=== PATIENT | male | born 1950 | race African-American/Black ===

== ENCOUNTER 2020-04-07 12:33 | Inpatient (IN) | payer OTHER ==
[2020-04-07 14:16] VITALS: BMI 21.2
[2020-04-07] MEDS ORDERED: NICOTINE POLACRILEX 2 MG GUM BUC PRN (21:28)
[2020-04-07] MEDS ORDERED: MAGNESIUM CITRATE 300 ML BOTTLE PO PRN (21:28)
[2020-04-07] MEDS ORDERED: MENTHOL/PHENOL 1 EACH UD MM PRN (21:28)
[2020-04-07] MEDS ORDERED: ACETAMINOPHEN 325 MG TABLET (FP) PO PRN ×2 (21:28)
[2020-04-07] MEDS ORDERED: METHOCARBAMOL 500 MG TABLET PO PRN (21:28)
[2020-04-07] MEDS ORDERED: MAGNESIUM HYDROX 2400MG/30ML ORAL SUSPENSION 30 ML CUP PO PRN (21:28)
[2020-04-07] MEDS ORDERED: MAG HYDROX/AL HYDROX/SIMETH 30 ML UNIT-DOSE CUP PO PRN (21:28)
[2020-04-07] MEDS ORDERED: ONDANSETRON *ODT* 4 MG TABLET SL PRN (21:28)
[2020-04-07] MEDS ORDERED: ALBUTEROL SO4 HFA INHALER IH PRN (21:33)
[2020-04-07] MEDS ORDERED: chlordiazePOXIDE HCL 25 MG CAPSULE PO PRN (21:36)
[2020-04-07] MEDS ORDERED: cloNIDine HCL 0.1 MG TABLET PO PRN (21:37)
[2020-04-07] MEDS ORDERED: chlordiazePOXIDE HCL 10 MG CAPSULE PO PRN (21:42)
[2020-04-07] MEDS ORDERED: METHADONE HCL 10 MG TABLET (FOR DETOX USE ONLY) PO ONE (22:15)
[2020-04-07] MEDS: THIAMINE HCL 100 MG TABLET (FP) PO SCH (22:47)
[2020-04-07] MEDS: chlordiazePOXIDE HCL 25 MG CAPSULE PO SCH (22:47)
[2020-04-07] MEDS: guaiFENesin 200 MG/10 ML 10 ML UNIT-DOSE CUPS PO SCH (22:49)
[2020-04-07] MEDS: MELATONIN 5 MG TABLETS PO SCH (22:50)
[2020-04-08] MEDS: guaiFENesin 200 MG/10 ML 10 ML UNIT-DOSE CUPS PO SCH ×4 (05:31→22:43)
[2020-04-08] MEDS: chlordiazePOXIDE HCL 25 MG CAPSULE PO SCH ×4 (06:31→22:43)
[2020-04-08] MEDS ORDERED: METHADONE HCL 10 MG TABLET (FOR DETOX USE ONLY) PO ONE (10:00)
[2020-04-08] MEDS: LISINOPRIL 10 MG TABLET PO SCH (10:40)
[2020-04-08] MEDS: NICOTINE 7 MG/24 HOURS TOPICAL PATCH TD SCH (10:41)
[2020-04-08] MEDS: PRENATAL VITAMINS W/ FOLIC ACID TABLET (FP) PO SCH (10:41)
[2020-04-08] MEDS: MELATONIN 5 MG TABLETS PO SCH (22:43)
[2020-04-08] MEDS: THIAMINE HCL 100 MG TABLET (FP) PO SCH (22:43)
[2020-04-09] MEDS: guaiFENesin 200 MG/10 ML 10 ML UNIT-DOSE CUPS PO SCH ×3 (05:55→16:50)
[2020-04-09] MEDS: chlordiazePOXIDE HCL 25 MG CAPSULE PO SCH ×4 (05:56→22:04)
[2020-04-09] MEDS ORDERED: METHADONE HCL 5 MG TABLET (FOR DETOX USE ONLY) PO ONE (10:00)
[2020-04-09] MEDS: LISINOPRIL 10 MG TABLET PO SCH (10:37)
[2020-04-09] MEDS: NICOTINE 7 MG/24 HOURS TOPICAL PATCH TD SCH (10:40)
[2020-04-09] MEDS: PRENATAL VITAMINS W/ FOLIC ACID TABLET (FP) PO SCH (10:46)
[2020-04-09] MEDS: THIAMINE HCL 100 MG TABLET (FP) PO SCH (22:04)
[2020-04-09] MEDS: MELATONIN 5 MG TABLETS PO SCH (22:05)
[2020-04-10] MEDS ORDERED: chlordiazePOXIDE HCL 10 MG CAPSULE PO PRN
[2020-04-10] MEDS: chlordiazePOXIDE HCL 10 MG CAPSULE PO SCH ×3 (07:03→18:16)
[2020-04-10] MEDS ORDERED: METHADONE HCL 5 MG TABLET (FOR DETOX USE ONLY) ONE (08:29)
[2020-04-10] MEDS ORDERED: METHADONE HCL 10 MG TABLET (FOR DETOX USE ONLY) ONE (08:30)
[2020-04-10] MEDS ORDERED: METHADONE (DETOX) 10 MG, METHADONE (DETOX) 5 MG PO ONE (10:00)
[2020-04-10] MEDS: PRENATAL VITAMINS W/ FOLIC ACID TABLET (FP) PO SCH (10:39)
[2020-04-10] MEDS: NICOTINE 7 MG/24 HOURS TOPICAL PATCH TD SCH (10:46)
[2020-04-10] MEDS: LISINOPRIL 10 MG TABLET PO SCH (13:32)
[2020-04-10] MEDS: THIAMINE HCL 100 MG TABLET (FP) PO SCH (23:31)
[2020-04-10] MEDS: MELATONIN 5 MG TABLETS PO SCH (23:31)
[2020-04-11] MEDS ORDERED: chlordiazePOXIDE HCL 10 MG CAPSULE PO SCH (05:00)
[2020-04-11] MEDS: NICOTINE 7 MG/24 HOURS TOPICAL PATCH TD SCH (09:34)
[2020-04-11] MEDS: LISINOPRIL 10 MG TABLET PO SCH (09:34)
[2020-04-11] MEDS: PRENATAL VITAMINS W/ FOLIC ACID TABLET (FP) PO SCH (09:34)
[2020-04-11] MEDS ORDERED: METHADONE HCL 10 MG TABLET (FOR DETOX USE ONLY) PO ONE (10:00)
[2020-04-11 14:22] LABS: INR 1.32 (0.83-1.09); PROTHROMBIN TIME (PATIENT) 15.9 SEC (9.7-13.0)
[2020-04-11] MEDS ORDERED: MASKS NR ONE (17:31)
[2020-04-11] MEDS: MELATONIN 5 MG TABLETS PO SCH (22:39)
[2020-04-11] MEDS: THIAMINE HCL 100 MG TABLET (FP) PO SCH (22:39)
[2020-04-12] MEDS ORDERED: chlordiazePOXIDE HCL 10 MG CAPSULE PO ONE (05:00)
[2020-04-12] MEDS ORDERED: METHADONE HCL 5 MG TABLET (FOR DETOX USE ONLY) PO ONE (06:00)
[2020-04-12 09:50] VITALS: BP 149/91; PULSE 84; TEMP 97.3
[2020-04-12] MEDS: PRENATAL VITAMINS W/ FOLIC ACID TABLET (FP) PO SCH (10:28)
[2020-04-12] MEDS: NICOTINE 7 MG/24 HOURS TOPICAL PATCH TD SCH (10:28)
[2020-04-12] MEDS: LISINOPRIL 10 MG TABLET PO SCH (10:28)
== END 2020-04-12 11:30 | disposition home or self-care (01) | DRG 897 ==
LOC: YASAS 12:33 → Y6N 20:59
PROVIDERS: ADMIT Allergy & Immunology; ATTEND Allergy & Immunology
PROC: HZ2ZZZZ Detoxification Services for Substance Abuse Treatment (ICD-10-PCS; principal; 2020-04-07)
DX: F10.230 Alcohol dependence with withdrawal, uncomplicated (principal); F14.20 Cocaine dependence, uncomplicated; I69.854 Hemiplegia and hemiparesis following other cerebrovascular disease affecting left non-dominant side; F11.23 Opioid dependence with withdrawal; F17.210 Nicotine dependence, cigarettes, uncomplicated; F32.9 Major depressive disorder, single episode, unspecified; I10 Essential (primary) hypertension; I48.91 Unspecified atrial fibrillation; J43.9 Emphysema, unspecified; J45.909 Unspecified asthma, uncomplicated; K21.9 Gastro-esophageal reflux disease without esophagitis; R00.1 Bradycardia, unspecified; R76.11 Nonspecific reaction to tuberculin skin test without active tuberculosis; R26.89 Other abnormalities of gait and mobility; R63.4 Abnormal weight loss; Z98.61 Coronary angioplasty status; Z68.21 Body mass index [BMI] 21.0-21.9, adult; Z99.89 Dependence on other enabling machines and devices; Z86.19 Personal history of other infectious and parasitic diseases
CPT/HCPCS: 36415; 71046-TC-FY; 85610; 86780; C9803; U0003

== ENCOUNTER 2020-04-07 13:47 | Emergency (ER) | payer OTHER ==
[2020-04-07] MEDS ORDERED: ACETAMINOPHEN 325 MG TABLET (FP) PO ONE (15:27)
[2020-04-07] MEDS ORDERED: chlordiazePOXIDE HCL 25 MG CAPSULE PO ONE (15:27)
[2020-04-07] MEDS ORDERED: chlordiazePOXIDE HCL 25 MG CAPSULE ONE (15:44)
[2020-04-07] MEDS ORDERED: ACETAMINOPHEN 325 MG TABLET (FP) ONE (15:44)
[2020-04-07 16:18] LABS: BASO % 2.5 % (0-2.0); EOS % 5.5 % (0-4.5); HEMATOCRIT 42.2 % (35.4-49); HEMOGLOBIN 13.7 GM/dL (11.7-16.9); LYMPH % 35.1 % (8-40); MCH 29.8 pg (25.7-33.7); MCHC 32.5 g/dl (32.0-35.9); MEAN CELL VOLUME 91.6 fl (80-96); MEAN PLT VOLUME 8.1 fl (7.5-11.1); MONO % 15.1 % (3.8-10.2); NEUT % 41.8 % (42.8-82.8); PLATELET COUNT 274 K/MM3 (134-434); RBC 4.61 M/mm3 (4.00-5.60); RDW 16.4 % (11.9-15.9); WHITE BLOOD COUNT 3.6 K/mm3 (4.0-10.0)
[2020-04-07 16:45] LABS: POTASSIUM 3.5 mmol/L (3.5-5.1)
[2020-04-07 16:46] LABS: CALCIUM 8.7 mg/dL (8.5-10.1)
[2020-04-07 16:48] LABS: ALBUMIN 3.4 g/dl (3.4-5.0); BLOOD UREA NITROGEN 12.7 mg/dL (7-18)
[2020-04-07 16:50] LABS: CREATININE 1.2 mg/dL (0.55-1.3)
[2020-04-07 16:53] LABS: TOT PROT 6.8 g/dl (6.4-8.2)
[2020-04-07 17:52] LABS: PROTHROMBIN TIME (PATIENT) 53.8 SEC (9.7-13.0)
[2020-04-07 17:55] LABS: ACTIVATED PTT 48.8 SECONDS (25.2-36.5)
[2020-04-07 18:16] LABS: INR 4.65 (0.83-1.09)
[2020-04-07 18:53] VITALS: BP 118/83; PULSE 69
== END 2020-04-07 18:59 | disposition home or self-care (01) ==
LOC: JER 13:47
DX: R00.1 Bradycardia, unspecified (principal); F10.239 Alcohol dependence with withdrawal, unspecified
CPT/HCPCS: 36415; 80053; 85025; 85610; 85730; 93005; 93010; 99283-25

== ENCOUNTER 2021-10-29 16:12 | Inpatient (IN) | payer OTHER ==
[2021-10-29] MEDS ORDERED: IBUPROFEN 600 MG TABLET (FP) PO PRN (17:32)
[2021-10-29] MEDS ORDERED: MAGNESIUM CITRATE 300 ML BOTTLE PO PRN (17:32)
[2021-10-29] MEDS ORDERED: MAG HYDROX/AL HYDROX/SIMETH 30 ML UNIT-DOSE CUP PO PRN (17:32)
[2021-10-29] MEDS ORDERED: METHOCARBAMOL 500 MG TABLET PO PRN (17:32)
[2021-10-29] MEDS ORDERED: NICOTINE POLACRILEX 2 MG GUM BUC PRN (17:32)
[2021-10-29] MEDS ORDERED: DICYCLOMINE HCL 10 MG CAPSULE PO PRN (17:32)
[2021-10-29] MEDS ORDERED: ACETAMINOPHEN 325 MG TABLET (FP) PO PRN ×2 (17:32)
[2021-10-29] MEDS ORDERED: IBUPROFEN 400 MG TABLET (FP) PO PRN (17:32)
[2021-10-29] MEDS ORDERED: LOPERAMIDE HCL 2 MG CAPSULE PO PRN (17:32)
[2021-10-29] MEDS ORDERED: MAGNESIUM HYDROX 2400MG/30ML ORAL SUSPENSION 30 ML CUP PO PRN (17:32)
[2021-10-29] MEDS ORDERED: ONDANSETRON *ODT* 4 MG TABLET SL PRN (17:32)
[2021-10-29] MEDS ORDERED: BENZOCAINE/MENTHOL (CHLORASEPTIC ) LOZENGE MM PRN (17:32)
[2021-10-29] MEDS ORDERED: BISMUTH SUBSALICYLATE 524 MG/30 ML PO PRN (17:32)
[2021-10-29] MEDS ORDERED: diazePAM 5 MG TABLET PO PRN (17:35)
[2021-10-29 17:56] VITALS: BMI 18.6
[2021-10-29] MEDS ORDERED: ALBUTEROL SO4 HFA INHALER IH PRN (19:53)
[2021-10-29] MEDS: levETIRAcetam 500 MG TABLET (FP) PO SCH (22:35)
[2021-10-29] MEDS: ATORVASTATIN CA 40 MG TABLET (FP) PO SCH (22:35)
[2021-10-29] MEDS: diazePAM 5 MG TABLET PO SCH (22:35)
[2021-10-29] MEDS: THIAMINE HCL 100 MG TABLET (FP) PO SCH (22:35)
[2021-10-30] MEDS: diazePAM 5 MG TABLET PO SCH ×4 (06:08→22:41)
[2021-10-30 09:51] LABS: HEMATOCRIT 39.7 % (35.4-49); HEMOGLOBIN 13.3 GM/dL (11.7-16.9); MCH 30.9 pg (25.7-33.7); MCHC 33.6 g/dl (32.0-35.9); MEAN CELL VOLUME 91.9 fl (80-96); MEAN PLT VOLUME 7.5 fl (7.5-11.1); PLATELET COUNT 249 10^3/uL (134-434); RBC 4.32 M/mm3 (4.00-5.60); RDW 15.6 % (11.9-15.9); WHITE BLOOD COUNT 4.1 K/mm3 (4.0-10.0)
[2021-10-30] MEDS ORDERED: FUROSEMIDE 40 MG TABLET (FP) PO SCH (10:00)
[2021-10-30 10:07] LABS: CALCIUM 8.1 mg/dL (8.5-10.1)
[2021-10-30 10:08] LABS: BLOOD UREA NITROGEN 16.8 mg/dL (7-18)
[2021-10-30 10:11] LABS: CREATININE 1.3 mg/dL (0.55-1.3)
[2021-10-30 10:13] LABS: BILIRUBIN,TOTAL 0.6 mg/dL (0.2-1); TOT PROT 6.1 g/dl (6.4-8.2)
[2021-10-30] MEDS ORDERED: POTASSIUM CHLORIDE ORAL LIQUID 20 MEQ/15 ML PO ONE (10:51)
[2021-10-30] MEDS: PRENATAL VITAMINS W/ FOLIC ACID TABLET (FP) PO SCH (11:19)
[2021-10-30] MEDS: levETIRAcetam 500 MG TABLET (FP) PO SCH ×2 (11:20→22:41)
[2021-10-30] MEDS: RIVAROXABAN 20 MG TABLET PO SCH (11:20)
[2021-10-30] MEDS: LISINOPRIL 10 MG TABLET PO SCH (11:21)
[2021-10-30] MEDS: hydrOXYzine PAMOATE 25 MG CAPSULE (FP) PO PRN (18:22)
[2021-10-30] MEDS: ATORVASTATIN CA 40 MG TABLET (FP) PO SCH (22:41)
[2021-10-30] MEDS: THIAMINE HCL 100 MG TABLET (FP) PO SCH (22:41)
[2021-10-31] MEDS: diazePAM 5 MG TABLET PO SCH ×3 (06:38→21:35)
[2021-10-31] MEDS: hydrOXYzine PAMOATE 25 MG CAPSULE (FP) PO PRN ×2 (10:40→13:09)
[2021-10-31] MEDS: levETIRAcetam 500 MG TABLET (FP) PO SCH ×2 (10:40→21:34)
[2021-10-31] MEDS: LISINOPRIL 10 MG TABLET PO SCH (10:40)
[2021-10-31] MEDS: PRENATAL VITAMINS W/ FOLIC ACID TABLET (FP) PO SCH (10:40)
[2021-10-31] MEDS: FUROSEMIDE 40 MG TABLET (FP) PO SCH (11:09)
[2021-10-31] MEDS: RIVAROXABAN 20 MG TABLET PO SCH (12:02)
[2021-10-31] MEDS: THIAMINE HCL 100 MG TABLET (FP) PO SCH (21:35)
[2021-10-31] MEDS: MELATONIN 5 MG TABLETS PO PRN (21:35)
[2021-10-31] MEDS: ATORVASTATIN CA 40 MG TABLET (FP) PO SCH (21:35)
[2021-11-01] MEDS: diazePAM 5 MG TABLET PO SCH ×2 (06:04→18:13)
[2021-11-01] MEDS: LISINOPRIL 10 MG TABLET PO SCH (10:44)
[2021-11-01] MEDS: PRENATAL VITAMINS W/ FOLIC ACID TABLET (FP) PO SCH (10:44)
[2021-11-01] MEDS: levETIRAcetam 500 MG TABLET (FP) PO SCH ×2 (10:44→23:04)
[2021-11-01] MEDS: FUROSEMIDE 40 MG TABLET (FP) PO SCH (10:45)
[2021-11-01] MEDS: RIVAROXABAN 20 MG TABLET PO SCH (10:45)
[2021-11-01] MEDS: MELATONIN 5 MG TABLETS PO PRN (23:04)
[2021-11-01] MEDS: ATORVASTATIN CA 40 MG TABLET (FP) PO SCH (23:04)
[2021-11-01] MEDS: THIAMINE HCL 100 MG TABLET (FP) PO SCH (23:05)
[2021-11-02] MEDS ORDERED: diazePAM 5 MG TABLET PO ONE (06:00)
[2021-11-02] MEDS: RIVAROXABAN 20 MG TABLET PO SCH (10:43)
[2021-11-02] MEDS: levETIRAcetam 500 MG TABLET (FP) PO SCH (10:43)
[2021-11-02] MEDS: PRENATAL VITAMINS W/ FOLIC ACID TABLET (FP) PO SCH (10:43)
[2021-11-02] MEDS: FUROSEMIDE 40 MG TABLET (FP) PO SCH (10:43)
[2021-11-02] MEDS: LISINOPRIL 10 MG TABLET PO SCH (10:43)
[2021-11-02 13:56] VITALS: BP 105/60; PULSE 63; TEMP 97.3
== END 2021-11-02 17:44 | disposition other institution (70) | DRG 897 ==
LOC: YASAS 16:12 → Y6N 19:40
PROVIDERS: ADMIT Allergy & Immunology; ATTEND Surgery
PROC: HZ2ZZZZ Detoxification Services for Substance Abuse Treatment (ICD-10-PCS; principal; 2021-10-29)
DX: F10.230 Alcohol dependence with withdrawal, uncomplicated (principal); F11.20 Opioid dependence, uncomplicated; F14.20 Cocaine dependence, uncomplicated; I69.854 Hemiplegia and hemiparesis following other cerebrovascular disease affecting left non-dominant side; F17.210 Nicotine dependence, cigarettes, uncomplicated; F18.24 Inhalant dependence with inhalant-induced mood disorder; I48.91 Unspecified atrial fibrillation; I10 Essential (primary) hypertension; J43.9 Emphysema, unspecified; K21.9 Gastro-esophageal reflux disease without esophagitis; R26.89 Other abnormalities of gait and mobility; Z79.01 Long term (current) use of anticoagulants; Z86.11 Personal history of tuberculosis
CPT/HCPCS: 36415; 71045-TC-FY; 80053; 84132; 85027; 86780; C9803-CS; U0003; U0005

== ENCOUNTER 2021-11-02 17:55 | Inpatient (IN) | payer OTHER ==
[2021-11-02] MEDS ORDERED: ACETAMINOPHEN 325 MG TABLET (FP) PO PRN (19:59)
[2021-11-02] MEDS ORDERED: hydrOXYzine PAMOATE 25 MG CAPSULE (FP) PO PRN (19:59)
[2021-11-02] MEDS ORDERED: MAGNESIUM CITRATE 300 ML BOTTLE PO PRN (19:59)
[2021-11-02] MEDS ORDERED: MAGNESIUM HYDROX 2400MG/30ML ORAL SUSPENSION 30 ML CUP PO PRN (19:59)
[2021-11-02] MEDS ORDERED: guaiFENesin 200 MG/10 ML 10 ML UNIT-DOSE CUPS PO PRN (19:59)
[2021-11-02] MEDS ORDERED: P-EPHED 60MG/TRIPROLIDI 2.5MG TABLET PO PRN (19:59)
[2021-11-02] MEDS ORDERED: BENZOCAINE/MENTHOL (CHLORASEPTIC ) LOZENGE MM PRN (19:59)
[2021-11-02] MEDS ORDERED: IBUPROFEN 400 MG TABLET (FP) PO PRN (19:59)
[2021-11-02] MEDS ORDERED: NICOTINE 10 MG CARTRIDGE (INHALER) IH PRN (19:59)
[2021-11-02] MEDS ORDERED: MAG HYDROX/AL HYDROX/SIMETH 30 ML UNIT-DOSE CUP PO PRN (19:59)
[2021-11-02] MEDS ORDERED: LOPERAMIDE HCL 2 MG CAPSULE PO PRN (19:59)
[2021-11-02] MEDS ORDERED: ALBUTEROL SO4 HFA INHALER IH PRN (20:00)
[2021-11-02] MEDS: levETIRAcetam 500 MG TABLET (FP) PO SCH (22:42)
[2021-11-02] MEDS: ATORVASTATIN CA 40 MG TABLET (FP) PO SCH (22:42)
[2021-11-02] MEDS: THIAMINE HCL 100 MG TABLET (FP) PO SCH (22:43)
[2021-11-02] MEDS: MELATONIN 5 MG TABLETS PO PRN (22:43)
[2021-11-03] MEDS ORDERED: PATIENT'S OWN MEDICATION (NON-FORMULARY) (Multivitamin [Multiple Vitamins] 1 EACH Tablet) PO SCH (10:00)
[2021-11-03] MEDS: levETIRAcetam 500 MG TABLET (FP) PO SCH ×2 (11:31→22:13)
[2021-11-03] MEDS: FUROSEMIDE 40 MG TABLET (FP) PO SCH (11:31)
[2021-11-03] MEDS: RIVAROXABAN 20 MG TABLET PO SCH (11:31)
[2021-11-03] MEDS: LISINOPRIL 10 MG TABLET PO SCH (11:31)
[2021-11-03] MEDS: PRENATAL VITAMINS W/ FOLIC ACID TABLET (FP) PO SCH (11:32)
[2021-11-03] MEDS: THIAMINE HCL 100 MG TABLET (FP) PO SCH (22:13)
[2021-11-03] MEDS: ATORVASTATIN CA 40 MG TABLET (FP) PO SCH (22:13)
[2021-11-03] MEDS: MELATONIN 5 MG TABLETS PO PRN (22:14)
[2021-11-04] MEDS: levETIRAcetam 500 MG TABLET (FP) PO SCH ×2 (09:59→22:05)
[2021-11-04] MEDS: PRENATAL VITAMINS W/ FOLIC ACID TABLET (FP) PO SCH (09:59)
[2021-11-04] MEDS: FUROSEMIDE 40 MG TABLET (FP) PO SCH (09:59)
[2021-11-04] MEDS: RIVAROXABAN 20 MG TABLET PO SCH (09:59)
[2021-11-04] MEDS: LISINOPRIL 10 MG TABLET PO SCH (09:59)
[2021-11-04] MEDS: THIAMINE HCL 100 MG TABLET (FP) PO SCH (22:05)
[2021-11-04] MEDS: ATORVASTATIN CA 40 MG TABLET (FP) PO SCH (22:05)
[2021-11-05] MEDS: FUROSEMIDE 40 MG TABLET (FP) PO SCH (11:18)
[2021-11-05] MEDS: levETIRAcetam 500 MG TABLET (FP) PO SCH ×2 (11:18→21:30)
[2021-11-05] MEDS: PRENATAL VITAMINS W/ FOLIC ACID TABLET (FP) PO SCH (11:18)
[2021-11-05] MEDS: LISINOPRIL 10 MG TABLET PO SCH (11:18)
[2021-11-05] MEDS: RIVAROXABAN 20 MG TABLET PO SCH (11:19)
[2021-11-05] MEDS: THIAMINE HCL 100 MG TABLET (FP) PO SCH (21:30)
[2021-11-05] MEDS: ATORVASTATIN CA 40 MG TABLET (FP) PO SCH (21:30)
[2021-11-05] MEDS: MELATONIN 5 MG TABLETS PO PRN (21:30)
[2021-11-06] MEDS: levETIRAcetam 500 MG TABLET (FP) PO SCH ×2 (11:56→21:46)
[2021-11-06] MEDS: PRENATAL VITAMINS W/ FOLIC ACID TABLET (FP) PO SCH (11:56)
[2021-11-06] MEDS: FUROSEMIDE 40 MG TABLET (FP) PO SCH (11:56)
[2021-11-06] MEDS: LISINOPRIL 10 MG TABLET PO SCH (11:56)
[2021-11-06] MEDS: RIVAROXABAN 20 MG TABLET PO SCH (11:57)
[2021-11-06] MEDS: ATORVASTATIN CA 40 MG TABLET (FP) PO SCH (21:46)
[2021-11-06] MEDS: MELATONIN 5 MG TABLETS PO PRN (21:46)
[2021-11-06] MEDS: THIAMINE HCL 100 MG TABLET (FP) PO SCH (21:46)
[2021-11-07] MEDS: FUROSEMIDE 40 MG TABLET (FP) PO SCH (11:19)
[2021-11-07] MEDS: PRENATAL VITAMINS W/ FOLIC ACID TABLET (FP) PO SCH (11:19)
[2021-11-07] MEDS: levETIRAcetam 500 MG TABLET (FP) PO SCH ×2 (11:19→21:26)
[2021-11-07] MEDS: RIVAROXABAN 20 MG TABLET PO SCH (11:19)
[2021-11-07] MEDS: LISINOPRIL 10 MG TABLET PO SCH (11:19)
[2021-11-07] MEDS: ATORVASTATIN CA 40 MG TABLET (FP) PO SCH (21:26)
[2021-11-07] MEDS: THIAMINE HCL 100 MG TABLET (FP) PO SCH (21:26)
[2021-11-07] MEDS: MELATONIN 5 MG TABLETS PO PRN (21:26)
[2021-11-08] MEDS: levETIRAcetam 500 MG TABLET (FP) PO SCH ×2 (10:44→22:03)
[2021-11-08] MEDS: RIVAROXABAN 20 MG TABLET PO SCH (10:44)
[2021-11-08] MEDS: PRENATAL VITAMINS W/ FOLIC ACID TABLET (FP) PO SCH (10:44)
[2021-11-08] MEDS: FUROSEMIDE 40 MG TABLET (FP) PO SCH (10:44)
[2021-11-08] MEDS: LISINOPRIL 10 MG TABLET PO SCH (10:44)
[2021-11-08] MEDS: ATORVASTATIN CA 40 MG TABLET (FP) PO SCH (22:03)
[2021-11-08] MEDS: MELATONIN 5 MG TABLETS PO PRN (22:03)
[2021-11-08] MEDS: THIAMINE HCL 100 MG TABLET (FP) PO SCH (22:04)
[2021-11-09] MEDS: RIVAROXABAN 20 MG TABLET PO SCH (11:00)
[2021-11-09] MEDS: levETIRAcetam 500 MG TABLET (FP) PO SCH ×2 (11:00→21:33)
[2021-11-09] MEDS: FUROSEMIDE 40 MG TABLET (FP) PO SCH (11:00)
[2021-11-09] MEDS: PRENATAL VITAMINS W/ FOLIC ACID TABLET (FP) PO SCH (11:00)
[2021-11-09] MEDS: LISINOPRIL 10 MG TABLET PO SCH (11:00)
[2021-11-09] MEDS: ATORVASTATIN CA 40 MG TABLET (FP) PO SCH (21:33)
[2021-11-09] MEDS: ALBUTEROL SO4 HFA INHALER IH SCH (21:37)
[2021-11-09] MEDS: THIAMINE HCL 100 MG TABLET (FP) PO SCH (21:38)
[2021-11-10] MEDS: levETIRAcetam 500 MG TABLET (FP) PO SCH ×2 (10:42→21:46)
[2021-11-10] MEDS: PRENATAL VITAMINS W/ FOLIC ACID TABLET (FP) PO SCH (10:42)
[2021-11-10] MEDS: LISINOPRIL 10 MG TABLET PO SCH (10:42)
[2021-11-10] MEDS: FUROSEMIDE 40 MG TABLET (FP) PO SCH (10:42)
[2021-11-10] MEDS: ALBUTEROL SO4 HFA INHALER IH SCH ×2 (10:47→21:50)
[2021-11-10] MEDS: RIVAROXABAN 20 MG TABLET PO SCH (18:49)
[2021-11-10] MEDS: THIAMINE HCL 100 MG TABLET (FP) PO SCH (21:46)
[2021-11-10] MEDS: ATORVASTATIN CA 40 MG TABLET (FP) PO SCH (21:46)
[2021-11-10] MEDS: MELATONIN 5 MG TABLETS PO PRN (21:46)
[2021-11-11] MEDS: levETIRAcetam 500 MG TABLET (FP) PO SCH ×2 (10:23→21:38)
[2021-11-11] MEDS: FUROSEMIDE 40 MG TABLET (FP) PO SCH (10:23)
[2021-11-11] MEDS: ALBUTEROL SO4 HFA INHALER IH SCH ×2 (10:23→21:39)
[2021-11-11] MEDS: LISINOPRIL 10 MG TABLET PO SCH (10:23)
[2021-11-11] MEDS: PRENATAL VITAMINS W/ FOLIC ACID TABLET (FP) PO SCH (10:23)
[2021-11-11] MEDS: RIVAROXABAN 20 MG TABLET PO SCH (17:06)
[2021-11-11] MEDS: THIAMINE HCL 100 MG TABLET (FP) PO SCH (21:38)
[2021-11-11] MEDS: MELATONIN 5 MG TABLETS PO PRN (21:38)
[2021-11-11] MEDS: ATORVASTATIN CA 40 MG TABLET (FP) PO SCH (21:38)
[2021-11-12] MEDS: ALBUTEROL SO4 HFA INHALER IH PRN (06:46)
[2021-11-12] MEDS: FUROSEMIDE 40 MG TABLET (FP) PO SCH (11:03)
[2021-11-12] MEDS: PRENATAL VITAMINS W/ FOLIC ACID TABLET (FP) PO SCH (11:03)
[2021-11-12] MEDS: LISINOPRIL 10 MG TABLET PO SCH (11:04)
[2021-11-12] MEDS: ALBUTEROL SO4 HFA INHALER IH SCH ×2 (11:04→22:40)
[2021-11-12] MEDS: levETIRAcetam 500 MG TABLET (FP) PO SCH ×2 (11:04→22:38)
[2021-11-12] MEDS: RIVAROXABAN 20 MG TABLET PO SCH (17:14)
[2021-11-12] MEDS: THIAMINE HCL 100 MG TABLET (FP) PO SCH (22:38)
[2021-11-12] MEDS: MELATONIN 5 MG TABLETS PO PRN (22:38)
[2021-11-12] MEDS: ATORVASTATIN CA 40 MG TABLET (FP) PO SCH (22:38)
[2021-11-13] MEDS: levETIRAcetam 500 MG TABLET (FP) PO SCH ×2 (11:48→22:07)
[2021-11-13] MEDS: PRENATAL VITAMINS W/ FOLIC ACID TABLET (FP) PO SCH (11:48)
[2021-11-13] MEDS: FUROSEMIDE 40 MG TABLET (FP) PO SCH (11:48)
[2021-11-13] MEDS: LISINOPRIL 10 MG TABLET PO SCH (11:49)
[2021-11-13] MEDS: ALBUTEROL SO4 HFA INHALER IH SCH ×2 (11:53→22:07)
[2021-11-13] MEDS: RIVAROXABAN 20 MG TABLET PO SCH (17:13)
[2021-11-13] MEDS: THIAMINE HCL 100 MG TABLET (FP) PO SCH (22:07)
[2021-11-13] MEDS: ATORVASTATIN CA 40 MG TABLET (FP) PO SCH (22:07)
[2021-11-13] MEDS: MELATONIN 5 MG TABLETS PO PRN (22:07)
[2021-11-14] MEDS: levETIRAcetam 500 MG TABLET (FP) PO SCH ×2 (10:46→21:18)
[2021-11-14] MEDS: FUROSEMIDE 40 MG TABLET (FP) PO SCH (10:46)
[2021-11-14] MEDS: PRENATAL VITAMINS W/ FOLIC ACID TABLET (FP) PO SCH (10:46)
[2021-11-14] MEDS: LISINOPRIL 10 MG TABLET PO SCH (10:46)
[2021-11-14] MEDS: ALBUTEROL SO4 HFA INHALER IH SCH ×2 (10:47→21:19)
[2021-11-14] MEDS: RIVAROXABAN 20 MG TABLET PO SCH (17:14)
[2021-11-14] MEDS: MELATONIN 5 MG TABLETS PO PRN (21:18)
[2021-11-14] MEDS: THIAMINE HCL 100 MG TABLET (FP) PO SCH (21:18)
[2021-11-14] MEDS: ATORVASTATIN CA 40 MG TABLET (FP) PO SCH (21:18)
[2021-11-15] MEDS: FUROSEMIDE 40 MG TABLET (FP) PO SCH (10:17)
[2021-11-15] MEDS: LISINOPRIL 10 MG TABLET PO SCH (10:17)
[2021-11-15] MEDS: PRENATAL VITAMINS W/ FOLIC ACID TABLET (FP) PO SCH (10:17)
[2021-11-15] MEDS: levETIRAcetam 500 MG TABLET (FP) PO SCH ×2 (10:17→21:28)
[2021-11-15] MEDS: ALBUTEROL SO4 HFA INHALER IH SCH ×2 (10:57→21:29)
[2021-11-15] MEDS: RIVAROXABAN 20 MG TABLET PO SCH (17:29)
[2021-11-15] MEDS: ATORVASTATIN CA 40 MG TABLET (FP) PO SCH (21:28)
[2021-11-15] MEDS: THIAMINE HCL 100 MG TABLET (FP) PO SCH (21:28)
[2021-11-15] MEDS: MELATONIN 5 MG TABLETS PO PRN (21:28)
[2021-11-16] MEDS: PRENATAL VITAMINS W/ FOLIC ACID TABLET (FP) PO SCH (10:51)
[2021-11-16] MEDS: ALBUTEROL SO4 HFA INHALER IH SCH ×2 (10:51→21:28)
[2021-11-16] MEDS: FUROSEMIDE 40 MG TABLET (FP) PO SCH (10:51)
[2021-11-16] MEDS: LISINOPRIL 10 MG TABLET PO SCH (10:51)
[2021-11-16] MEDS: levETIRAcetam 500 MG TABLET (FP) PO SCH ×2 (10:51→21:01)
[2021-11-16] MEDS: NALTREXONE HCL 50 MG TABLET PO SCH (15:36)
[2021-11-16] MEDS: RIVAROXABAN 20 MG TABLET PO SCH (17:03)
[2021-11-16] MEDS: THIAMINE HCL 100 MG TABLET (FP) PO SCH (21:01)
[2021-11-16] MEDS: ATORVASTATIN CA 40 MG TABLET (FP) PO SCH (21:01)
[2021-11-17] MEDS: ALBUTEROL SO4 HFA INHALER IH PRN (06:08)
[2021-11-17] MEDS: FUROSEMIDE 40 MG TABLET (FP) PO SCH (10:40)
[2021-11-17] MEDS: LISINOPRIL 10 MG TABLET PO SCH (10:40)
[2021-11-17] MEDS: levETIRAcetam 500 MG TABLET (FP) PO SCH ×2 (10:40→21:50)
[2021-11-17] MEDS: ALBUTEROL SO4 HFA INHALER IH SCH ×2 (10:40→21:50)
[2021-11-17] MEDS: PRENATAL VITAMINS W/ FOLIC ACID TABLET (FP) PO SCH (10:40)
[2021-11-17] MEDS: NALTREXONE HCL 50 MG TABLET PO SCH (10:40)
[2021-11-17] MEDS: CALCIUM 500MG/VIT-D 200 UNITS COMBO TABLET (FP) PO SCH (17:35)
[2021-11-17] MEDS: RIVAROXABAN 20 MG TABLET PO SCH (17:36)
[2021-11-17] MEDS: ATORVASTATIN CA 40 MG TABLET (FP) PO SCH (21:50)
[2021-11-17] MEDS: MELATONIN 5 MG TABLETS PO PRN (21:50)
[2021-11-17] MEDS: THIAMINE HCL 100 MG TABLET (FP) PO SCH (21:50)
[2021-11-18] MEDS: ALBUTEROL SO4 HFA INHALER IH PRN (06:47)
[2021-11-18] MEDS: PRENATAL VITAMINS W/ FOLIC ACID TABLET (FP) PO SCH (09:58)
[2021-11-18] MEDS: NALTREXONE HCL 50 MG TABLET PO SCH (09:58)
[2021-11-18] MEDS: levETIRAcetam 500 MG TABLET (FP) PO SCH ×2 (09:58→21:50)
[2021-11-18] MEDS: CALCIUM 500MG/VIT-D 200 UNITS COMBO TABLET (FP) PO SCH (09:58)
[2021-11-18] MEDS: LISINOPRIL 10 MG TABLET PO SCH (09:58)
[2021-11-18] MEDS: FUROSEMIDE 40 MG TABLET (FP) PO SCH (09:58)
[2021-11-18] MEDS: ALBUTEROL SO4 HFA INHALER IH SCH ×2 (09:59→21:51)
[2021-11-18] MEDS: RIVAROXABAN 20 MG TABLET PO SCH (17:41)
[2021-11-18] MEDS: ATORVASTATIN CA 40 MG TABLET (FP) PO SCH (21:50)
[2021-11-18] MEDS: MELATONIN 5 MG TABLETS PO PRN (21:50)
[2021-11-18] MEDS: THIAMINE HCL 100 MG TABLET (FP) PO SCH (21:51)
[2021-11-19 06:57] VITALS: TEMP 97.3
[2021-11-19] MEDS: CALCIUM 500MG/VIT-D 200 UNITS COMBO TABLET (FP) PO SCH (10:47)
[2021-11-19] MEDS: levETIRAcetam 500 MG TABLET (FP) PO SCH ×2 (10:47→21:52)
[2021-11-19] MEDS: FUROSEMIDE 40 MG TABLET (FP) PO SCH (10:47)
[2021-11-19] MEDS: LISINOPRIL 10 MG TABLET PO SCH (10:47)
[2021-11-19] MEDS: NALTREXONE HCL 50 MG TABLET PO SCH (10:47)
[2021-11-19] MEDS: PRENATAL VITAMINS W/ FOLIC ACID TABLET (FP) PO SCH (10:50)
[2021-11-19] MEDS: ALBUTEROL SO4 HFA INHALER IH SCH ×2 (10:50→21:52)
[2021-11-19] MEDS: NICOTINE 21 MG/24 HOURS TOPICAL PATCH TD SCH (12:04)
[2021-11-19] MEDS: RIVAROXABAN 20 MG TABLET PO SCH (17:15)
[2021-11-19] MEDS: THIAMINE HCL 100 MG TABLET (FP) PO SCH (21:52)
[2021-11-19] MEDS: ATORVASTATIN CA 40 MG TABLET (FP) PO SCH (21:52)
[2021-11-19] MEDS: MELATONIN 5 MG TABLETS PO PRN (21:52)
[2021-11-20 07:22] VITALS: BP 143/93; PULSE 74
[2021-11-20] MEDS: FUROSEMIDE 40 MG TABLET (FP) PO SCH (09:13)
[2021-11-20] MEDS: NALTREXONE HCL 50 MG TABLET PO SCH (09:13)
[2021-11-20] MEDS: LISINOPRIL 10 MG TABLET PO SCH (09:13)
[2021-11-20] MEDS: PRENATAL VITAMINS W/ FOLIC ACID TABLET (FP) PO SCH (09:13)
[2021-11-20] MEDS: levETIRAcetam 500 MG TABLET (FP) PO SCH (09:13)
[2021-11-20] MEDS: CALCIUM 500MG/VIT-D 200 UNITS COMBO TABLET (FP) PO SCH (09:13)
[2021-11-20] MEDS: NICOTINE 21 MG/24 HOURS TOPICAL PATCH TD SCH (09:14)
[2021-11-20] MEDS: ALBUTEROL SO4 HFA INHALER IH SCH (09:14)
== END 2021-11-20 11:22 | disposition home or self-care (01) | DRG 895 ==
LOC: YASAS 17:55 → Y3W 17:57
PROVIDERS: ADMIT Allergy & Immunology; ATTEND Psychiatry & Neurology Pain Medicine
PROC: HZ42ZZZ Group Counseling for Substance Abuse Treatment, Cognitive-Behavioral (ICD-10-PCS; principal; 2021-11-02)
DX: F11.20 Opioid dependence, uncomplicated (principal); F14.20 Cocaine dependence, uncomplicated; E87.0 Hyperosmolality and hypernatremia; F10.20 Alcohol dependence, uncomplicated; F17.210 Nicotine dependence, cigarettes, uncomplicated; I48.91 Unspecified atrial fibrillation; I10 Essential (primary) hypertension; J44.9 Chronic obstructive pulmonary disease, unspecified; Z99.89 Dependence on other enabling machines and devices; Z79.01 Long term (current) use of anticoagulants

== ENCOUNTER 2022-01-11 17:56 | Inpatient (IN) | payer OTHER ==
[2022-01-11 21:52] VITALS: BMI 19.1
[2022-01-11] MEDS ORDERED: P-EPHED 60MG/TRIPROLIDI 2.5MG TABLET PO PRN (22:06)
[2022-01-11] MEDS ORDERED: MAG HYDROX/AL HYDROX/SIMETH 30 ML UNIT-DOSE CUP PO PRN (22:06)
[2022-01-11] MEDS ORDERED: BENZOCAINE/MENTHOL (CHLORASEPTIC ) LOZENGE MM PRN (22:06)
[2022-01-11] MEDS ORDERED: guaiFENesin 200 MG/10 ML 10 ML UNIT-DOSE CUPS PO PRN (22:06)
[2022-01-11] MEDS ORDERED: MAGNESIUM HYDROX 2400MG/30ML ORAL SUSPENSION 30 ML CUP PO PRN (22:06)
[2022-01-11] MEDS ORDERED: MAGNESIUM CITRATE 300 ML BOTTLE PO PRN (22:06)
[2022-01-12] MEDS: PRENATAL VITAMINS W/ FOLIC ACID TABLET (FP) PO SCH (09:49)
[2022-01-12] MEDS: FUROSEMIDE 40 MG TABLET (FP) PO SCH (09:49)
[2022-01-12] MEDS: levETIRAcetam 500 MG TABLET (FP) PO SCH ×3 (09:49→21:03)
[2022-01-12] MEDS: ESCITALOPRAM OXALATE 10 MG TABLET PO SCH (09:50)
[2022-01-12] MEDS: ATORVASTATIN CA 40 MG TABLET (FP) PO SCH (21:03)
[2022-01-12] MEDS: THIAMINE HCL 100 MG TABLET (FP) PO SCH (21:03)
[2022-01-12] MEDS: RIVAROXABAN 20 MG TABLET PO SCH (22:23)
[2022-01-13] MEDS: FUROSEMIDE 40 MG TABLET (FP) PO SCH (09:45)
[2022-01-13] MEDS: ESCITALOPRAM OXALATE 10 MG TABLET PO SCH (09:45)
[2022-01-13] MEDS: levETIRAcetam 500 MG TABLET (FP) PO SCH ×2 (09:45→21:08)
[2022-01-13] MEDS: PRENATAL VITAMINS W/ FOLIC ACID TABLET (FP) PO SCH (09:45)
[2022-01-13] MEDS: THIAMINE HCL 100 MG TABLET (FP) PO SCH (21:08)
[2022-01-13] MEDS: ATORVASTATIN CA 40 MG TABLET (FP) PO SCH (21:08)
[2022-01-13] MEDS: MELATONIN 5 MG TABLETS PO PRN (21:09)
[2022-01-13] MEDS: RIVAROXABAN 20 MG TABLET PO SCH (22:27)
[2022-01-14] MEDS: levETIRAcetam 500 MG TABLET (FP) PO SCH ×2 (09:38→21:14)
[2022-01-14] MEDS: PRENATAL VITAMINS W/ FOLIC ACID TABLET (FP) PO SCH (09:38)
[2022-01-14] MEDS: ESCITALOPRAM OXALATE 10 MG TABLET PO SCH (09:38)
[2022-01-14] MEDS: FUROSEMIDE 40 MG TABLET (FP) PO SCH (09:38)
[2022-01-14] MEDS: RIVAROXABAN 20 MG TABLET PO SCH (18:16)
[2022-01-14] MEDS: MELATONIN 5 MG TABLETS PO PRN (21:14)
[2022-01-14] MEDS: THIAMINE HCL 100 MG TABLET (FP) PO SCH (21:14)
[2022-01-14] MEDS: ATORVASTATIN CA 40 MG TABLET (FP) PO SCH (21:14)
[2022-01-15] MEDS: ESCITALOPRAM OXALATE 10 MG TABLET PO SCH (09:55)
[2022-01-15] MEDS: levETIRAcetam 500 MG TABLET (FP) PO SCH ×2 (09:55→21:19)
[2022-01-15] MEDS: FUROSEMIDE 40 MG TABLET (FP) PO SCH (09:55)
[2022-01-15] MEDS: PRENATAL VITAMINS W/ FOLIC ACID TABLET (FP) PO SCH (09:55)
[2022-01-15] MEDS: ACETAMINOPHEN 325 MG TABLET (FP) PO PRN (09:57)
[2022-01-15] MEDS: CLOPIDOGREL BISULFATE 75 MG TABLET (FP) PO SCH (11:58)
[2022-01-15] MEDS: UMECLIDINIUM/VILANTEROL (ANORO) 62.5/25 MCG INHALER IH SCH (14:07)
[2022-01-15] MEDS: RIVAROXABAN 20 MG TABLET PO SCH (20:26)
[2022-01-15] MEDS: MELATONIN 5 MG TABLETS PO PRN (21:19)
[2022-01-15] MEDS: ATORVASTATIN CA 40 MG TABLET (FP) PO SCH (21:19)
[2022-01-15] MEDS: THIAMINE HCL 100 MG TABLET (FP) PO SCH (21:19)
[2022-01-16] MEDS: CLOPIDOGREL BISULFATE 75 MG TABLET (FP) PO SCH (09:46)
[2022-01-16] MEDS: UMECLIDINIUM/VILANTEROL (ANORO) 62.5/25 MCG INHALER IH SCH (09:46)
[2022-01-16] MEDS: PRENATAL VITAMINS W/ FOLIC ACID TABLET (FP) PO SCH (09:46)
[2022-01-16] MEDS: levETIRAcetam 500 MG TABLET (FP) PO SCH ×2 (09:46→21:13)
[2022-01-16] MEDS: ESCITALOPRAM OXALATE 10 MG TABLET PO SCH (09:46)
[2022-01-16] MEDS: FUROSEMIDE 40 MG TABLET (FP) PO SCH (09:46)
[2022-01-16] MEDS: RIVAROXABAN 20 MG TABLET PO SCH (17:34)
[2022-01-16] MEDS: MELATONIN 5 MG TABLETS PO PRN (21:12)
[2022-01-16] MEDS: THIAMINE HCL 100 MG TABLET (FP) PO SCH (21:13)
[2022-01-16] MEDS: ATORVASTATIN CA 40 MG TABLET (FP) PO SCH (21:13)
[2022-01-17] MEDS: levETIRAcetam 500 MG TABLET (FP) PO SCH ×2 (09:28→21:15)
[2022-01-17] MEDS: UMECLIDINIUM/VILANTEROL (ANORO) 62.5/25 MCG INHALER IH SCH (09:28)
[2022-01-17] MEDS: CLOPIDOGREL BISULFATE 75 MG TABLET (FP) PO SCH (09:29)
[2022-01-17] MEDS: PRENATAL VITAMINS W/ FOLIC ACID TABLET (FP) PO SCH (09:29)
[2022-01-17] MEDS: FUROSEMIDE 40 MG TABLET (FP) PO SCH (09:29)
[2022-01-17] MEDS: ESCITALOPRAM OXALATE 10 MG TABLET PO SCH (09:29)
[2022-01-17] MEDS: RIVAROXABAN 20 MG TABLET PO SCH (18:00)
[2022-01-17] MEDS: MELATONIN 5 MG TABLETS PO PRN (21:15)
[2022-01-17] MEDS: THIAMINE HCL 100 MG TABLET (FP) PO SCH (21:15)
[2022-01-17] MEDS: ATORVASTATIN CA 40 MG TABLET (FP) PO SCH (21:15)
[2022-01-18] MEDS: ALBUTEROL SO4 HFA INHALER IH PRN (08:48)
[2022-01-18] MEDS: ESCITALOPRAM OXALATE 10 MG TABLET PO SCH (10:35)
[2022-01-18] MEDS: FUROSEMIDE 40 MG TABLET (FP) PO SCH (10:35)
[2022-01-18] MEDS: CLOPIDOGREL BISULFATE 75 MG TABLET (FP) PO SCH (10:35)
[2022-01-18] MEDS: UMECLIDINIUM/VILANTEROL (ANORO) 62.5/25 MCG INHALER IH SCH (10:35)
[2022-01-18] MEDS: PRENATAL VITAMINS W/ FOLIC ACID TABLET (FP) PO SCH (10:35)
[2022-01-18] MEDS: levETIRAcetam 500 MG TABLET (FP) PO SCH ×2 (10:35→21:48)
[2022-01-18] MEDS: metoPROLOL SUCCINATE 25 MG TAB.SR.24H (FP) PO SCH (12:52)
[2022-01-18] MEDS: RIVAROXABAN 20 MG TABLET PO SCH (17:38)
[2022-01-18] MEDS ORDERED: METOPROLOL TARTRATE 25 MG TABLET (FP) PO ONE (18:03)
[2022-01-18] MEDS: MELATONIN 5 MG TABLETS PO PRN (21:47)
[2022-01-18] MEDS: ATORVASTATIN CA 40 MG TABLET (FP) PO SCH (21:48)
[2022-01-18] MEDS: THIAMINE HCL 100 MG TABLET (FP) PO SCH (21:48)
[2022-01-18] MEDS: ACETAMINOPHEN 325 MG TABLET (FP) PO PRN (21:50)
[2022-01-19] MEDS: ALBUTEROL SO4 HFA INHALER IH PRN (02:36)
[2022-01-19 06:24] VITALS: TEMP 97.1
[2022-01-19] MEDS: ACETAMINOPHEN 325 MG TABLET (FP) PO PRN ×2 (06:25→11:00)
[2022-01-19] MEDS: UMECLIDINIUM/VILANTEROL (ANORO) 62.5/25 MCG INHALER IH SCH ×2 (06:31→09:11)
[2022-01-19] MEDS: levETIRAcetam 500 MG TABLET (FP) PO SCH (09:10)
[2022-01-19] MEDS: ESCITALOPRAM OXALATE 10 MG TABLET PO SCH (09:10)
[2022-01-19] MEDS: FUROSEMIDE 40 MG TABLET (FP) PO SCH (09:10)
[2022-01-19] MEDS: metoPROLOL SUCCINATE 25 MG TAB.SR.24H (FP) PO SCH (09:10)
[2022-01-19] MEDS: CLOPIDOGREL BISULFATE 75 MG TABLET (FP) PO SCH (09:10)
[2022-01-19] MEDS: PRENATAL VITAMINS W/ FOLIC ACID TABLET (FP) PO SCH (09:12)
[2022-01-19 15:36] VITALS: BP 116/85
[2022-01-19 15:51] VITALS: PULSE 133; RESP 14
[2022-01-19] MEDS: RIVAROXABAN 20 MG TABLET PO SCH (19:05)
== END 2022-01-19 | disposition short-term general hospital (02) | DRG 895 ==
LOC: YASAS 17:56 → Y5N 23:19
PROVIDERS: ADMIT Allergy & Immunology; ATTEND Psychiatry & Neurology Pain Medicine
PROC: HZ42ZZZ Group Counseling for Substance Abuse Treatment, Cognitive-Behavioral (ICD-10-PCS; principal; 2022-01-11)
DX: F10.20 Alcohol dependence, uncomplicated (principal); F14.20 Cocaine dependence, uncomplicated; I48.20 Chronic atrial fibrillation, unspecified; F17.210 Nicotine dependence, cigarettes, uncomplicated; F32.A Depression, unspecified; F19.24 Other psychoactive substance dependence with psychoactive substance-induced mood disorder; I10 Essential (primary) hypertension; I25.10 Atherosclerotic heart disease of native coronary artery without angina pectoris; R06.02 Shortness of breath; R42 Dizziness and giddiness; R73.03 Prediabetes; M54.9 Dorsalgia, unspecified; G40.909 Epilepsy, unspecified, not intractable, without status epilepticus; J44.9 Chronic obstructive pulmonary disease, unspecified; I45.10 Unspecified right bundle-branch block; Z86.19 Personal history of other infectious and parasitic diseases; Z86.11 Personal history of tuberculosis; Z95.5 Presence of coronary angioplasty implant and graft; Z86.73 Personal history of transient ischemic attack (TIA), and cerebral infarction without residual deficits; Z56.0 Unemployment, unspecified; Z59.01 Sheltered homelessness
CPT/HCPCS: 36415; 80177

== ENCOUNTER 2022-01-19 16:30 | Inpatient (IN) | payer OTHER ==
[2022-01-19 16:46] VITALS: BMI 22.5
[2022-01-19] MEDS ORDERED: PIPERACILLIN/TAZOB 3.375 GM 3.375 GM in DEXTROSE 5%-WATER - 50 ML IVPB ONE (17:36)
[2022-01-19] MEDS ORDERED: VANCOMYCIN 1 GM in D5W (PRE-DOCKED) 1,000 MG/250 ML IVPB ONE (17:36)
[2022-01-19 17:57] LABS: BASO % 0.8 % (0-2.0); HEMOGLOBIN 14.1 GM/dL (11.7-16.9); LYMPH % 35.8 % (8-40); MCH 31.9 pg (25.7-33.7); MCHC 33.6 g/dl (32.0-35.9); MEAN CELL VOLUME 94.9 fl (80-96); MEAN PLT VOLUME 8.8 fl (7.5-11.1); MONO % 12.8 % (3.8-10.2); NEUT % 49.6 % (42.8-82.8); PLATELET COUNT 167 10^3/uL (134-434); RBC 4.43 M/mm3 (4.00-5.60); RDW 15.7 % (11.9-15.9); WHITE BLOOD COUNT 4.2 K/mm3 (4.0-10.0)
[2022-01-19] MEDS ORDERED: PIPERACILLIN/TAZOB 3.375 GM 3.375 GM/50 ML BAG IVPB ONE (18:08)
[2022-01-19] MEDS ORDERED: VANCOMYCIN/WATER FOR INJ (PEG) 1,000 MG/200 ML BAG IVPB ONE (18:08)
[2022-01-19 18:13] LABS: CHLORIDE 107 mmol/L (98-107); SODIUM 135 mmol/L (136-145)
[2022-01-19 18:16] LABS: ALBUMIN 3.8 g/dl (3.4-5.0); BLOOD UREA NITROGEN 36.7 mg/dL (7-18); CO2 24 mmol/L (21-32); GLUCOSE,RANDOM 74 mg/dL (74-106)
[2022-01-19 18:19] LABS: CREATININE 1.7 mg/dL (0.55-1.3); SGOT/AST 132 U/L (15-37)
[2022-01-19 18:21] LABS: BILIRUBIN,TOTAL 0.9 mg/dL (0.2-1); TOT PROT 8.2 g/dl (6.4-8.2)
[2022-01-19 18:22] LABS: ALK PHOS 177 U/L (45-117)
[2022-01-19 18:24] LABS: N-TERMINAL BNP 10231.9 pg/ml (5-125)
[2022-01-19 18:44] LABS: ANION GAP 4 MMOL/L (8-16); SGPT/ALT 59 U/L (13-61)
[2022-01-19] MEDS ORDERED: SODIUM POLYSTYRENE SULFONATE 15 GM/60 ML BOTTLE PO ONE (19:10)
[2022-01-19 20:41] LABS: PH,URINE 7.5 (5.0-8.0); URINE APPEARANCE CLEAR; URINE BILIRUBIN NEGATIVE (NEGATIVE); URINE COLOR YELLOW; URINE GLUCOSE (UA) NEGATIVE (NEGATIVE); URINE KETONE NEGATIVE (NEGATIVE); URINE LEUK ESTERASE NEGATIVE (NEGATIVE); URINE NITRITE NEGATIVE (NEGATIVE); URINE PROTEIN NEGATIVE (NEGATIVE)
[2022-01-19] MEDS ORDERED: ACETAMINOPHEN 1000 MG/100 ML BAG IVPB ONE (20:45)
[2022-01-19] MEDS ORDERED: ACETAMINOPHEN INJECTION 100 ML IVPB ONE (20:45)
[2022-01-19] MEDS ORDERED: SODIUM POLYSTYRENE SULFONATE 15 GM/60 ML BOTTLE ONE (20:45)
[2022-01-19 20:58] LABS: CALCIUM 8.9 mg/dL (8.5-10.1)
[2022-01-19 20:59] LABS: BLOOD UREA NITROGEN 36.4 mg/dL (7-18)
[2022-01-19 21:02] LABS: CREATININE 1.5 mg/dL (0.55-1.3)
[2022-01-19] MEDS ORDERED: ACETAMINOPHEN 325 MG TABLET (FP) PO PRN (21:38)
[2022-01-19] MEDS ORDERED: FUROSEMIDE 40 MG/4 ML INJECTABLE VIAL IVPUSH ONE (21:51)
[2022-01-19] MEDS ORDERED: METOPROLOL TARTRATE 25 MG TABLET (FP) PO SCH (22:00)
[2022-01-19] MEDS ORDERED: FUROSEMIDE 40 MG/4 ML INJECTABLE VIAL ONE (22:52)
[2022-01-19] MEDS ORDERED: DEXTROSE 50%-WATER - 25 GM/50 ML VIAL IVPUSH ONE (22:59)
[2022-01-19] MEDS ORDERED: INSULIN REGULAR HUMAN 100 UNITS/ML *VIAL IVPUSH ONE (22:59)
[2022-01-19] MEDS ORDERED: ALBUTEROL SO4 HFA INHALER IH PRN (23:10)
[2022-01-19] MEDS ORDERED: DEXTROSE 50%-WATER 25 GM/50 ML DISP.SYRIN ONE (23:16)
[2022-01-19] MEDS: levETIRAcetam 500 MG TABLET (FP) PO SCH (23:32)
[2022-01-20] MEDS ORDERED: PIPERACILLIN/TAZOB 3.375 GM 3.375 GM in DEXTROSE 5%-WATER - 50 ML IVPB SCH (02:00)
[2022-01-20] MEDS ORDERED: PIPERACILLIN/TAZOB 3.375 GM 3.375 GM/50 ML BAG IVPB ONE ×2 (03:52→08:29)
[2022-01-20 05:05] LABS: METHADONE, UR NEGATIVE (NEGATIVE); PHENCYCLIDINE,URINE NEGATIVE (NEGATIVE); URINE BENZODIAZEPINES NEGATIVE (NEGATIVE)
[2022-01-20 05:06] LABS: COCAINE, UR NEGATIVE (NEGATIVE); OPIATES, URI NEGATIVE (NEGATIVE); URINE BARBITURATES NEGATIVE (NEGATIVE)
[2022-01-20 05:20] LABS: URINE AMPHETAMINES NEGATIVE (NEGATIVE)
[2022-01-20 05:38] LABS: HEMATOCRIT 47.2 % (35.4-49); HEMOGLOBIN 15.4 GM/dL (11.7-16.9); MCH 31.1 pg (25.7-33.7); MCHC 32.6 g/dl (32.0-35.9); MEAN CELL VOLUME 95.5 fl (80-96); MEAN PLT VOLUME 9.9 fl (7.5-11.1); PLATELET COUNT 164 10^3/uL (134-434); RBC 4.94 M/mm3 (4.00-5.60); WHITE BLOOD COUNT 3.4 K/mm3 (4.0-10.0)
[2022-01-20 05:57] LABS: CHLORIDE 103 mmol/L (98-107); SODIUM 138 mmol/L (136-145)
[2022-01-20 06:01] LABS: ALBUMIN 4.5 g/dl (3.4-5.0); BLOOD UREA NITROGEN 38.3 mg/dL (7-18); CALCIUM 9.5 mg/dL (8.5-10.1); CO2 25 mmol/L (21-32); GLUCOSE,RANDOM 65 mg/dL (74-106); MAGNESIUM 2.2 mg/dL (1.8-2.4)
[2022-01-20 06:04] LABS: CREATININE 1.8 mg/dL (0.55-1.3); PHOSPHOROUS 5.2 mg/dL (2.5-4.9); SGOT/AST 109 U/L (15-37); SGPT/ALT 65 U/L (13-61)
[2022-01-20 06:05] LABS: BILIRUBIN,TOTAL 1.7 mg/dL (0.2-1)
[2022-01-20 06:06] LABS: TOT PROT 8.7 g/dl (6.4-8.2)
[2022-01-20 06:07] LABS: ALK PHOS 178 U/L (45-117)
[2022-01-20 06:36] LABS: ANION GAP 10 MMOL/L (8-16)
[2022-01-20] MEDS ORDERED: SODIUM ZIRCONIUM CYCLOSILICATE (LOKELMA) 5 GM PACKET PO ONE ×2 (07:44→23:00)
[2022-01-20] MEDS ORDERED: METOPROLOL TARTRATE 25 MG TABLET (FP) ONE (08:27)
[2022-01-20] MEDS ORDERED: FUROSEMIDE 40 MG TABLET (FP) ONE (08:27)
[2022-01-20] MEDS ORDERED: PANTOPRAZOLE 40 MG TABLET PO ONE (08:28)
[2022-01-20] MEDS ORDERED: CLOPIDOGREL BISULFATE 75 MG TABLET (FP) ONE (08:28)
[2022-01-20] MEDS ORDERED: levETIRAcetam 500 MG TABLET (FP) PO ONE (08:28)
[2022-01-20] MEDS ORDERED: DIGOXIN 0.125 MG TABLET ONE (08:28)
[2022-01-20] MEDS ORDERED: ESCITALOPRAM OXALATE 10 MG TABLET ONE (08:28)
[2022-01-20] MEDS ORDERED: GABAPENTIN 300 MG CAPSULE ONE (08:29)
[2022-01-20] MEDS: UMECLIDINIUM/VILANTEROL (ANORO) 62.5/25 MCG INHALER IH SCH (08:59)
[2022-01-20] MEDS: METOPROLOL TARTRATE 25 MG TABLET (FP) PO SCH ×2 (09:00→21:36)
[2022-01-20] MEDS: DIGOXIN 0.125 MG TABLET PO SCH (09:02)
[2022-01-20] MEDS: FUROSEMIDE 40 MG TABLET (FP) PO SCH (09:02)
[2022-01-20] MEDS: PANTOPRAZOLE 40 MG TABLET PO SCH (09:32)
[2022-01-20] MEDS: levETIRAcetam 500 MG TABLET (FP) PO SCH ×2 (09:32→21:36)
[2022-01-20] MEDS: GABAPENTIN 300 MG CAPSULE PO SCH (09:32)
[2022-01-20] MEDS: ESCITALOPRAM OXALATE 10 MG TABLET PO SCH (09:32)
[2022-01-20] MEDS: CLOPIDOGREL BISULFATE 75 MG TABLET (FP) PO SCH (09:32)
[2022-01-20] MEDS: PIPERACILLIN/TAZOB 3.375 GM 3.375 GM in DEXTROSE 5%-WATER - 50 ML IVPB SCH ×2 (09:53→18:10)
[2022-01-20 17:20] LABS: CALCIUM 8.5 mg/dL (8.5-10.1)
[2022-01-20 17:21] LABS: BLOOD UREA NITROGEN 33.3 mg/dL (7-18)
[2022-01-20 17:25] LABS: CREATININE 1.5 mg/dL (0.55-1.3)
[2022-01-20] MEDS: RIVAROXABAN 20 MG TABLET PO SCH (18:10)
[2022-01-20] MEDS ORDERED: VANCOMYCIN 1 GM/200 ML PREMIX BAG IVPB SCH (19:00)
[2022-01-20 21:25] LABS: CREATININE, URINE RANDOM 26.5 mg/dL (30-150)
[2022-01-20] MEDS: ATORVASTATIN CA 40 MG TABLET (FP) PO SCH (21:38)
[2022-01-21] MEDS: PIPERACILLIN/TAZOB 3.375 GM 3.375 GM in DEXTROSE 5%-WATER - 50 ML IVPB SCH ×3 (03:21→17:55)
[2022-01-21 07:59] LABS: BASO % 1.4 % (0-2.0); EOS % 4.4 % (0-4.5); HEMATOCRIT 39.9 % (35.4-49); HEMOGLOBIN 12.9 GM/dL (11.7-16.9); MCH 30.9 pg (25.7-33.7); MCHC 32.4 g/dl (32.0-35.9); MEAN CELL VOLUME 95.5 fl (80-96); MEAN PLT VOLUME 9.2 fl (7.5-11.1); MONO % 18.8 % (3.8-10.2); NEUT % 38.4 % (42.8-82.8); PLATELET COUNT 153 10^3/uL (134-434); RBC 4.18 M/mm3 (4.00-5.60); RDW 15.4 % (11.9-15.9)
[2022-01-21 08:28] LABS: BLOOD UREA NITROGEN 31.2 mg/dL (7-18)
[2022-01-21 08:29] LABS: PHOSPHOROUS 4.7 mg/dL (2.5-4.9)
[2022-01-21 08:30] LABS: CREATININE 1.6 mg/dL (0.55-1.3)
[2022-01-21 08:32] LABS: CALCIUM 8.4 mg/dL (8.5-10.1)
[2022-01-21 08:33] LABS: MAGNESIUM 2.1 mg/dL (1.8-2.4)
[2022-01-21 08:36] LABS: ALBUMIN 3.3 g/dl (3.4-5.0); TOT PROT 6.3 g/dl (6.4-8.2)
[2022-01-21] MEDS: GABAPENTIN 300 MG CAPSULE PO SCH (09:20)
[2022-01-21] MEDS: CLOPIDOGREL BISULFATE 75 MG TABLET (FP) PO SCH (09:20)
[2022-01-21] MEDS: METOPROLOL TARTRATE 25 MG TABLET (FP) PO SCH ×2 (09:20→21:09)
[2022-01-21] MEDS: levETIRAcetam 500 MG TABLET (FP) PO SCH ×2 (09:20→21:09)
[2022-01-21] MEDS: DIGOXIN 0.125 MG TABLET PO SCH (09:20)
[2022-01-21] MEDS: FUROSEMIDE 40 MG TABLET (FP) PO SCH (09:21)
[2022-01-21] MEDS: PANTOPRAZOLE 40 MG TABLET PO SCH (09:21)
[2022-01-21] MEDS: ESCITALOPRAM OXALATE 10 MG TABLET PO SCH (09:21)
[2022-01-21] MEDS: UMECLIDINIUM/VILANTEROL (ANORO) 62.5/25 MCG INHALER IH SCH (09:22)
[2022-01-21 10:20] LABS: HIV INTERPRETATION NEGATIVE (NEGATIVE)
[2022-01-21] MEDS: RIVAROXABAN 20 MG TABLET PO SCH (17:55)
[2022-01-21] MEDS ORDERED: VANCOMYCIN 1 GM/200 ML PREMIX BAG IVPB SCH (19:00)
[2022-01-21] MEDS: ATORVASTATIN CA 40 MG TABLET (FP) PO SCH (21:09)
[2022-01-22] MEDS ORDERED: PIPERACILLIN/TAZOBACTAM 3.375 GM VIAL IVPB ONE (01:25)
[2022-01-22] MEDS: PIPERACILLIN/TAZOB 3.375 GM 3.375 GM in DEXTROSE 5%-WATER - 50 ML IVPB SCH ×3 (01:30→17:49)
[2022-01-22 09:04] LABS: BASO % 0.8 % (0-2.0); EOS % 4.3 % (0-4.5); HEMATOCRIT 40.6 % (35.4-49); HEMOGLOBIN 13.2 GM/dL (11.7-16.9); LYMPH % 31.4 % (8-40); MCH 30.9 pg (25.7-33.7); MCHC 32.6 g/dl (32.0-35.9); MEAN CELL VOLUME 94.8 fl (80-96); MEAN PLT VOLUME 9.1 fl (7.5-11.1); MONO % 16.6 % (3.8-10.2); NEUT % 46.9 % (42.8-82.8); PLATELET COUNT 183 10^3/uL (134-434); RBC 4.29 M/mm3 (4.00-5.60); RDW 15.6 % (11.9-15.9); WHITE BLOOD COUNT 3.4 K/mm3 (4.0-10.0)
[2022-01-22 09:22] LABS: BLOOD UREA NITROGEN 23.2 mg/dL (7-18); CALCIUM 8.3 mg/dL (8.5-10.1)
[2022-01-22 09:26] LABS: CREATININE 1.4 mg/dL (0.55-1.3)
[2022-01-22 09:31] LABS: MAGNESIUM 1.9 mg/dL (1.8-2.4)
[2022-01-22] MEDS: METOPROLOL TARTRATE 25 MG TABLET (FP) PO SCH ×2 (11:02→21:22)
[2022-01-22] MEDS: ESCITALOPRAM OXALATE 10 MG TABLET PO SCH (11:02)
[2022-01-22] MEDS: GABAPENTIN 300 MG CAPSULE PO SCH (11:02)
[2022-01-22] MEDS: FUROSEMIDE 40 MG TABLET (FP) PO SCH (11:03)
[2022-01-22] MEDS: PANTOPRAZOLE 40 MG TABLET PO SCH (11:03)
[2022-01-22] MEDS: CLOPIDOGREL BISULFATE 75 MG TABLET (FP) PO SCH (11:03)
[2022-01-22] MEDS: levETIRAcetam 500 MG TABLET (FP) PO SCH ×2 (11:03→21:22)
[2022-01-22] MEDS: DIGOXIN 0.125 MG TABLET PO SCH (11:03)
[2022-01-22] MEDS: UMECLIDINIUM/VILANTEROL (ANORO) 62.5/25 MCG INHALER IH SCH (11:08)
[2022-01-22] MEDS: RIVAROXABAN 20 MG TABLET PO SCH (17:49)
[2022-01-22] MEDS: ATORVASTATIN CA 40 MG TABLET (FP) PO SCH (21:22)
[2022-01-22] MEDS: SACUBITRIL/VALSARTAN 24 MG-26 MG TABLET PO SCH (21:25)
[2022-01-23] MEDS: PIPERACILLIN/TAZOB 3.375 GM 3.375 GM in DEXTROSE 5%-WATER - 50 ML IVPB SCH ×3 (03:30→17:16)
[2022-01-23 07:29] LABS: BASO % 1.1 % (0-2.0); EOS % 5.7 % (0-4.5); HEMATOCRIT 42.9 % (35.4-49); LYMPH % 37.1 % (8-40); MCH 30.8 pg (25.7-33.7); MCHC 32.5 g/dl (32.0-35.9); MEAN CELL VOLUME 94.8 fl (80-96); MEAN PLT VOLUME 8.5 fl (7.5-11.1); MONO % 16.6 % (3.8-10.2); NEUT % 39.5 % (42.8-82.8); PLATELET COUNT 189 10^3/uL (134-434); RBC 4.53 M/mm3 (4.00-5.60); RDW 15.5 % (11.9-15.9); WHITE BLOOD COUNT 3.1 K/mm3 (4.0-10.0)
[2022-01-23 07:46] LABS: CALCIUM 7.9 mg/dL (8.5-10.1)
[2022-01-23 07:47] LABS: BLOOD UREA NITROGEN 18.2 mg/dL (7-18)
[2022-01-23 07:50] LABS: CREATININE 1.3 mg/dL (0.55-1.3); PHOSPHOROUS 2.7 mg/dL (2.5-4.9)
[2022-01-23 07:51] LABS: TOT PROT 6.4 g/dl (6.4-8.2)
[2022-01-23 07:52] LABS: BILIRUBIN,TOTAL 0.8 mg/dL (0.2-1)
[2022-01-23] MEDS: levETIRAcetam 500 MG TABLET (FP) PO SCH ×2 (09:50→21:19)
[2022-01-23] MEDS: METOPROLOL TARTRATE 25 MG TABLET (FP) PO SCH ×2 (09:50→21:19)
[2022-01-23] MEDS: GABAPENTIN 300 MG CAPSULE PO SCH (09:50)
[2022-01-23] MEDS: FUROSEMIDE 40 MG TABLET (FP) PO SCH (09:50)
[2022-01-23] MEDS: PANTOPRAZOLE 40 MG TABLET PO SCH (09:50)
[2022-01-23] MEDS: SACUBITRIL/VALSARTAN 24 MG-26 MG TABLET PO SCH ×2 (09:50→21:19)
[2022-01-23] MEDS: ESCITALOPRAM OXALATE 10 MG TABLET PO SCH (09:50)
[2022-01-23] MEDS: UMECLIDINIUM/VILANTEROL (ANORO) 62.5/25 MCG INHALER IH SCH (09:50)
[2022-01-23] MEDS: KCL 10 MEQ IVPB 10 MEQ/100 ML INFUS.BAG IVPB SCH ×2 (10:45→11:26)
[2022-01-23] MEDS ORDERED: POTASSIUM CHLORIDE TABS 20 MEQ TABLET.ER (FP) PO ONE (12:20)
[2022-01-23] MEDS: RIVAROXABAN 20 MG TABLET PO SCH (17:16)
[2022-01-23] MEDS: ATORVASTATIN CA 40 MG TABLET (FP) PO SCH (21:19)
[2022-01-24] MEDS: PIPERACILLIN/TAZOB 3.375 GM 3.375 GM in DEXTROSE 5%-WATER - 50 ML IVPB SCH ×3 (01:38→17:28)
[2022-01-24] MEDS: GABAPENTIN 300 MG CAPSULE PO SCH (09:04)
[2022-01-24] MEDS: FUROSEMIDE 40 MG TABLET (FP) PO SCH (09:04)
[2022-01-24] MEDS: PANTOPRAZOLE 40 MG TABLET PO SCH (09:04)
[2022-01-24] MEDS: METOPROLOL TARTRATE 25 MG TABLET (FP) PO SCH (09:04)
[2022-01-24] MEDS: levETIRAcetam 500 MG TABLET (FP) PO SCH ×2 (09:04→21:36)
[2022-01-24] MEDS: ESCITALOPRAM OXALATE 10 MG TABLET PO SCH (09:04)
[2022-01-24] MEDS: SACUBITRIL/VALSARTAN 24 MG-26 MG TABLET PO SCH ×2 (09:04→21:36)
[2022-01-24 10:10] LABS: HEMATOCRIT 42.2 % (35.4-49); HEMOGLOBIN 14.1 GM/dL (11.7-16.9); MCH 31.6 pg (25.7-33.7); MCHC 33.4 g/dl (32.0-35.9); MEAN CELL VOLUME 94.5 fl (80-96); MEAN PLT VOLUME 8.2 fl (7.5-11.1); PLATELET COUNT 184 10^3/uL (134-434); RBC 4.46 M/mm3 (4.00-5.60); RDW 15.7 % (11.9-15.9); WHITE BLOOD COUNT 3.1 K/mm3 (4.0-10.0)
[2022-01-24 10:37] LABS: ANISOCYTOSIS 0; HELMET CELLS 0; HOWELL-JOLLY BODIES 0; MACROCYTOSIS 0; OVALOCYTE 0; ROULEAU 0; SICKELED CELLS 0; TARGET CELLS 0; TEAR DROP CELLS 0; TOXIC GRANULATION 0
[2022-01-24 10:40] LABS: ALBUMIN 2.8 g/dl (3.4-5.0); BLOOD UREA NITROGEN 18.2 mg/dL (7-18); CALCIUM 7.7 mg/dL (8.5-10.1); CREATININE 1.1 mg/dL (0.55-1.3)
[2022-01-24 10:42] LABS: MAGNESIUM 1.9 mg/dL (1.8-2.4)
[2022-01-24 10:43] LABS: PHOSPHOROUS 2.5 mg/dL (2.5-4.9)
[2022-01-24] MEDS: UMECLIDINIUM/VILANTEROL (ANORO) 62.5/25 MCG INHALER IH SCH (14:23)
[2022-01-24] MEDS ORDERED: METOPROLOL TARTRATE 50 MG TABLET (FP) PO SCH (14:36)
[2022-01-24] MEDS ORDERED: METOPROLOL TARTRATE 25 MG TABLET (FP) PO ONE (15:11)
[2022-01-24] MEDS ORDERED: MAGNESIUM 1GM/D5W 100ML - 100 ML IVPB IVPB ONE (16:21)
[2022-01-24] MEDS: RIVAROXABAN 20 MG TABLET PO SCH (17:28)
[2022-01-24] MEDS: NICOTINE 14 MG/24 HOURS TOPICAL PATCH TD SCH (21:28)
[2022-01-24] MEDS: METOPROLOL TARTRATE 50 MG TABLET (FP) PO SCH (21:36)
[2022-01-24] MEDS: ATORVASTATIN CA 40 MG TABLET (FP) PO SCH (21:36)
[2022-01-25] MEDS: PIPERACILLIN/TAZOB 3.375 GM 3.375 GM in DEXTROSE 5%-WATER - 50 ML IVPB SCH ×3 (01:34→17:55)
[2022-01-25 09:31] LABS: BASO % 0.8 % (0-2.0); HEMOGLOBIN 13.8 GM/dL (11.7-16.9); LYMPH % 37.2 % (8-40); MEAN CELL VOLUME 93.9 fl (80-96); MEAN PLT VOLUME 8.3 fl (7.5-11.1); MONO % 13.7 % (3.8-10.2); NEUT % 43.3 % (42.8-82.8); PLATELET COUNT 206 10^3/uL (134-434); RBC 4.47 M/mm3 (4.00-5.60); WHITE BLOOD COUNT 3.1 K/mm3 (4.0-10.0)
[2022-01-25 09:50] LABS: BLOOD UREA NITROGEN 17.4 mg/dL (7-18)
[2022-01-25 09:51] LABS: CALCIUM 7.7 mg/dL (8.5-10.1)
[2022-01-25 09:52] LABS: ALBUMIN 2.8 g/dl (3.4-5.0); MAGNESIUM 2.2 mg/dL (1.8-2.4)
[2022-01-25 09:54] LABS: CREATININE 1.2 mg/dL (0.55-1.3); TOT PROT 5.9 g/dl (6.4-8.2)
[2022-01-25 09:55] LABS: BILIRUBIN,TOTAL 0.7 mg/dL (0.2-1)
[2022-01-25] MEDS: METOPROLOL TARTRATE 50 MG TABLET (FP) PO SCH ×2 (10:33→22:03)
[2022-01-25] MEDS: NICOTINE 14 MG/24 HOURS TOPICAL PATCH TD SCH (10:33)
[2022-01-25] MEDS: PANTOPRAZOLE 40 MG TABLET PO SCH (10:34)
[2022-01-25] MEDS: SACUBITRIL/VALSARTAN 24 MG-26 MG TABLET PO SCH ×2 (10:34→22:03)
[2022-01-25] MEDS: SPIRONOLACTONE 25 MG TABLET PO SCH (10:34)
[2022-01-25] MEDS: ESCITALOPRAM OXALATE 10 MG TABLET PO SCH (10:34)
[2022-01-25] MEDS: levETIRAcetam 500 MG TABLET (FP) PO SCH ×2 (10:34→22:03)
[2022-01-25] MEDS: GABAPENTIN 300 MG CAPSULE PO SCH (10:34)
[2022-01-25] MEDS: FUROSEMIDE 40 MG TABLET (FP) PO SCH (10:34)
[2022-01-25] MEDS: UMECLIDINIUM/VILANTEROL (ANORO) 62.5/25 MCG INHALER IH SCH (10:35)
[2022-01-25] MEDS: RIVAROXABAN 20 MG TABLET PO SCH (17:55)
[2022-01-25] MEDS: ATORVASTATIN CA 40 MG TABLET (FP) PO SCH (22:03)
[2022-01-26] MEDS: PIPERACILLIN/TAZOB 3.375 GM 3.375 GM in DEXTROSE 5%-WATER - 50 ML IVPB SCH ×3 (01:58→17:20)
[2022-01-26] MEDS: levETIRAcetam 500 MG TABLET (FP) PO SCH ×2 (09:55→21:00)
[2022-01-26] MEDS: GABAPENTIN 300 MG CAPSULE PO SCH (09:55)
[2022-01-26] MEDS: PANTOPRAZOLE 40 MG TABLET PO SCH (09:55)
[2022-01-26] MEDS: NICOTINE 14 MG/24 HOURS TOPICAL PATCH TD SCH (09:55)
[2022-01-26] MEDS: SACUBITRIL/VALSARTAN 24 MG-26 MG TABLET PO SCH ×2 (09:56→21:00)
[2022-01-26] MEDS: ESCITALOPRAM OXALATE 10 MG TABLET PO SCH (09:56)
[2022-01-26] MEDS: METOPROLOL TARTRATE 50 MG TABLET (FP) PO SCH ×2 (09:57→21:00)
[2022-01-26] MEDS: FUROSEMIDE 40 MG TABLET (FP) PO SCH (09:58)
[2022-01-26] MEDS: SPIRONOLACTONE 25 MG TABLET PO SCH (09:58)
[2022-01-26] MEDS: UMECLIDINIUM/VILANTEROL (ANORO) 62.5/25 MCG INHALER IH SCH (10:04)
[2022-01-26 12:40] LABS: BASO % 1.3 % (0-2.0); EOS % 4.4 % (0-4.5); HEMOGLOBIN 14.1 GM/dL (11.7-16.9); LYMPH % 47.9 % (8-40); MCH 31.4 pg (25.7-33.7); MCHC 33.5 g/dl (32.0-35.9); MEAN CELL VOLUME 93.8 fl (80-96); MEAN PLT VOLUME 7.7 fl (7.5-11.1); MONO % 12.7 % (3.8-10.2); NEUT % 33.7 % (42.8-82.8); PLATELET COUNT 210 10^3/uL (134-434); RBC 4.48 M/mm3 (4.00-5.60); RDW 15.3 % (11.9-15.9)
[2022-01-26 12:51] LABS: CALCIUM 7.9 mg/dL (8.5-10.1)
[2022-01-26 12:52] LABS: ALBUMIN 2.7 g/dl (3.4-5.0); BLOOD UREA NITROGEN 16.6 mg/dL (7-18)
[2022-01-26 12:55] LABS: CREATININE 1.2 mg/dL (0.55-1.3); PHOSPHOROUS 2.4 mg/dL (2.5-4.9)
[2022-01-26 12:56] LABS: TOT PROT 5.7 g/dl (6.4-8.2)
[2022-01-26 12:57] LABS: BILIRUBIN,TOTAL 0.6 mg/dL (0.2-1)
[2022-01-26] MEDS ORDERED: POTASSIUM PHOSPHATE 30 MM in SODIUM CHLORIDE 500 ML IVPB ONE (14:23)
[2022-01-26] MEDS: RIVAROXABAN 20 MG TABLET PO SCH (17:20)
[2022-01-26] MEDS ORDERED: NAPH,MB-DB/K PH,MBDB POWDER PACKET PO ONE (20:30)
[2022-01-26] MEDS: ATORVASTATIN CA 40 MG TABLET (FP) PO SCH (21:00)
[2022-01-27] MEDS: PIPERACILLIN/TAZOB 3.375 GM 3.375 GM in DEXTROSE 5%-WATER - 50 ML IVPB SCH ×3 (01:46→17:17)
[2022-01-27 08:30] LABS: BASO % 0.5 % (0-2.0); HEMATOCRIT 39.7 % (35.4-49); HEMOGLOBIN 13.1 GM/dL (11.7-16.9); LYMPH % 48.4 % (8-40); MCH 30.7 pg (25.7-33.7); MCHC 32.9 g/dl (32.0-35.9); MEAN CELL VOLUME 93.1 fl (80-96); MEAN PLT VOLUME 7.8 fl (7.5-11.1); MONO % 12.2 % (3.8-10.2); NEUT % 34.9 % (42.8-82.8); PLATELET COUNT 219 10^3/uL (134-434); RBC 4.26 M/mm3 (4.00-5.60); RDW 15.2 % (11.9-15.9)
[2022-01-27 09:01] LABS: ALBUMIN 2.5 g/dl (3.4-5.0); BLOOD UREA NITROGEN 17.8 mg/dL (7-18); CALCIUM 7.6 mg/dL (8.5-10.1)
[2022-01-27 09:05] LABS: BILIRUBIN,TOTAL 0.6 mg/dL (0.2-1); CREATININE 1.3 mg/dL (0.55-1.3); PHOSPHOROUS 3.8 mg/dL (2.5-4.9); TOT PROT 5.4 g/dl (6.4-8.2)
[2022-01-27] MEDS: PANTOPRAZOLE 40 MG TABLET PO SCH (09:59)
[2022-01-27] MEDS: SPIRONOLACTONE 25 MG TABLET PO SCH (09:59)
[2022-01-27] MEDS: ESCITALOPRAM OXALATE 10 MG TABLET PO SCH (09:59)
[2022-01-27] MEDS: FUROSEMIDE 40 MG TABLET (FP) PO SCH (09:59)
[2022-01-27] MEDS: SACUBITRIL/VALSARTAN 24 MG-26 MG TABLET PO SCH ×2 (10:00→21:06)
[2022-01-27] MEDS: GABAPENTIN 300 MG CAPSULE PO SCH (10:00)
[2022-01-27] MEDS: levETIRAcetam 500 MG TABLET (FP) PO SCH ×2 (10:00→21:06)
[2022-01-27] MEDS: METOPROLOL TARTRATE 50 MG TABLET (FP) PO SCH ×2 (10:00→21:06)
[2022-01-27] MEDS: NICOTINE 14 MG/24 HOURS TOPICAL PATCH TD SCH (10:00)
[2022-01-27] MEDS: UMECLIDINIUM/VILANTEROL (ANORO) 62.5/25 MCG INHALER IH SCH (10:05)
[2022-01-27] MEDS: RIVAROXABAN 20 MG TABLET PO SCH (17:16)
[2022-01-27] MEDS: ATORVASTATIN CA 40 MG TABLET (FP) PO SCH (21:06)
[2022-01-28] MEDS: PIPERACILLIN/TAZOB 3.375 GM 3.375 GM in DEXTROSE 5%-WATER - 50 ML IVPB SCH ×3 (02:03→18:15)
[2022-01-28 09:17] LABS: BASO % 0.9 % (0-2.0); EOS % 3.8 % (0-4.5); HEMATOCRIT 43.6 % (35.4-49); HEMOGLOBIN 14.3 GM/dL (11.7-16.9); LYMPH % 49.2 % (8-40); MCH 30.7 pg (25.7-33.7); MCHC 32.8 g/dl (32.0-35.9); MEAN CELL VOLUME 93.7 fl (80-96); MEAN PLT VOLUME 7.8 fl (7.5-11.1); MONO % 12.3 % (3.8-10.2); NEUT % 33.8 % (42.8-82.8); PLATELET COUNT 240 10^3/uL (134-434); RBC 4.65 M/mm3 (4.00-5.60); RDW 15.2 % (11.9-15.9); WHITE BLOOD COUNT 2.9 K/mm3 (4.0-10.0)
[2022-01-28 09:35] LABS: CALCIUM 8.2 mg/dL (8.5-10.1)
[2022-01-28 09:36] LABS: BLOOD UREA NITROGEN 18.5 mg/dL (7-18)
[2022-01-28 09:39] LABS: BILIRUBIN,TOTAL 0.9 mg/dL (0.2-1); TOT PROT 6.2 g/dl (6.4-8.2)
[2022-01-28 09:40] LABS: CREATININE 1.2 mg/dL (0.55-1.3)
[2022-01-28] MEDS: ESCITALOPRAM OXALATE 10 MG TABLET PO SCH (10:51)
[2022-01-28] MEDS: GABAPENTIN 300 MG CAPSULE PO SCH (10:51)
[2022-01-28] MEDS: SACUBITRIL/VALSARTAN 24 MG-26 MG TABLET PO SCH (10:51)
[2022-01-28] MEDS: SPIRONOLACTONE 25 MG TABLET PO SCH (10:51)
[2022-01-28] MEDS: PANTOPRAZOLE 40 MG TABLET PO SCH (10:51)
[2022-01-28] MEDS: FUROSEMIDE 40 MG TABLET (FP) PO SCH (10:51)
[2022-01-28] MEDS: NICOTINE 14 MG/24 HOURS TOPICAL PATCH TD SCH (10:51)
[2022-01-28] MEDS: METOPROLOL TARTRATE 50 MG TABLET (FP) PO SCH (10:51)
[2022-01-28] MEDS: levETIRAcetam 500 MG TABLET (FP) PO SCH (10:51)
[2022-01-28] MEDS: UMECLIDINIUM/VILANTEROL (ANORO) 62.5/25 MCG INHALER IH SCH (11:04)
[2022-01-28 13:29] VITALS: RESP 18
[2022-01-28 13:32] VITALS: BP 121/68; PULSE 77; TEMP 97.5
[2022-01-28] MEDS: RIVAROXABAN 20 MG TABLET PO SCH (18:15)
== END 2022-01-28 18:56 | disposition home or self-care (01) | DRG 291 ==
LOC: JER 16:30 → JERBED 18:34 → J4W 01-20 12:52 → J4S 01-23 20:55
PROVIDERS: ADMIT Internal Medicine; ATTEND Internal Medicine
DX: I13.0 Hypertensive heart and chronic kidney disease with heart failure and stage 1 through stage 4 chronic kidney disease, or unspecified chronic kidney disease (principal); I50.33 Acute on chronic diastolic (congestive) heart failure; J69.0 Pneumonitis due to inhalation of food and vomit; N17.9 Acute kidney failure, unspecified; F14.20 Cocaine dependence, uncomplicated; I47.1 Supraventricular tachycardia; I48.91 Unspecified atrial fibrillation; E87.5 Hyperkalemia; F10.20 Alcohol dependence, uncomplicated; F17.210 Nicotine dependence, cigarettes, uncomplicated; N18.9 Chronic kidney disease, unspecified
CPT/HCPCS: 0241U-QW; 36415; 70450-TC; 71045-TC-FY; 76775-TC; 80048; 80053; 80061; 80162; 80307; 81003; 82550; 82570; 83036; 83605; 83690; 83735; 83880; 84100; 84133; 84156; 84300; 84443; 84484; 85025; 85027; 87040; 87086; 87389; 87899; 93005; 93010; 93306-TC; 94761; 97116-GP; 97162-GP; 99285-25